=== PATIENT | male | born 1945 | race Caucasian/White ===

== ENCOUNTER → 2016-06-04 | Outpatient (CLI) | payer BC ==
[~2016-06-04] MED LIST: DICL-201 PO; METO50TA16 PO; XRL20 PO
[2016-06-04 15:28] LABS: BLOOD UREA NITROGEN 16 mg/dl (7-18)
== END | disposition home or self-care (01) ==
LOC: C.LAB1850 12:55
PROVIDERS: ATTEND Physician Assistant
DX: I71.4 Abdominal aortic aneurysm, without rupture (principal); Z98.890 Other specified postprocedural states

== ENCOUNTER → 2016-06-11 | Outpatient (CLI) | payer BC ==
[~2016-06-11] MED LIST changes: +OPTIRAY 320 IV PRN
--- NOTE | 2016-06-11 10:40 | DIAGNOSTIC IMAGING REPORT ---
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 COMPARISON STUDY: CT angiogram of the abdomen and pelvis dated 11/28/2015. TECHNIQUE: Before and following the IV administration of 93 cc of Optiray 320, CT angiogram of the abdomen and pelvis was performed from the lung bases the proximal femora using the stent graft protocol. Images are reviewed in the axial, sagittal, and coronal planes. 3-D MIPS images are created and assessed. IV contrast was administered without complication. CT DOSE: 1190.36 mGy.cm FINDINGS: Lower chest: The heart is enlarged and without pericardial effusion. The coronary arteries are densely calcified. The lung bases are clear noting minimal dependent atelectasis. Tiny calcified granulomas are noted at the lung bases. Liver: The contrast-enhanced liver is normal in size, contour, and attenuation. There is no intrahepatic or ductal dilatation. The main portal veins appear patent. Gallbladder: Unremarkable. Spleen: Normal in size and attenuation. Pancreas: Unremarkable. Adrenal glands: Unremarkable. Kidneys: No renal calculi are identified on the unenhanced series. The contrast enhanced kidneys demonstrate cortical atrophy and are without hydronephrosis. The kidneys enhance symmetrically. A 1.6 cm cyst is identified in the upper pole the right kidney. Abdominal aorta and iliac arteries: There is advanced atherosclerotic calcification of the abdominal aorta and iliac arteries. There are postoperative changes from aortobiiliac stent graft repair of an infrarenal abdominal aortic aneurysm. There is no evidence of rupture. The residual aneurysm sac measures 5.6 cm in AP diameter and 5.4 cm in transverse diameter. The stent is widely patent. There are large type II endoleak identified, similar appearance to 11/28/2015 examination. These likely arises from the inferior mesenteric artery seen on axial image #198 of the delayed series, and from a left lumbar vessel seen on image #188. The iliac arteries are widely patent bilaterally. A focal dissection is again seen within the left common iliac artery on axial image #329 of the arterial phase series. Major branches of the abdominal aorta: The celiac trunk and superior mesenteric arteries are widely patent. The inferior mesenteric arteries patent, likely filling via retrograde flow. Hepatic arterial anatomy is conventional. The splenic artery is clear. There are single bilateral renal arteries which are widely patent. Bowel: The small bowel and colon are normal in course and caliber. The appendix is normal in appearance. Peritoneum: There is no intraperitoneal free air or abdominal ascites. Lymphadenopathy: None. Pelvic viscera: The prostate gland is enlarged measuring 5.4 cm in transverse diameter. The bladder wall appears thickened and trabeculated suggesting the sequelae of chronic outlet obstruction. Skeletal structures: The skeletal structures are osteopenic. There is mild to moderate lumbosacral spondylosis and scoliosis. Degenerative change is noted in the sacroiliac joints with partial fusion on the right. No destructive bony lesions are seen. IMPRESSION: 1. Again seen are postoperative changes from aortobiiliac stent graft repair of an infrarenal abdominal aortic aneurysm. The stent is widely patent. 2. 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 This is similar to 11/28/2015. A clear communication with these vessels is shown, and although the contrast material is located adjacent to the graft a type III endoleak is considered much less likely. 3. The residual aneurysm sac measures 5.6 x 5.4 cm, and has not significantly changed in size from previous. 4. 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 5. Cardiomegaly. 6. No acute infectious or inflammatory findings are identified in the abdomen or pelvis. 7. Prostatomegaly with evidence of chronic bladder outlet obstruction. Electronically signed by: Ramesh Dowd M.D. 06/11/2016 10:38 AM Dictated Date/Time: 06/11/2016 10:21 AM
== END | disposition home or self-care (01) ==
LOC: C.CTS 09:41
PROVIDERS: ATTEND Physician Assistant
DX: I71.4 Abdominal aortic aneurysm, without rupture (principal); Z98.890 Other specified postprocedural states; I51.7 Cardiomegaly; N40.0 Benign prostatic hyperplasia without lower urinary tract symptoms; N32.0 Bladder-neck obstruction

== ENCOUNTER → 2017-07-18 | Outpatient (CLI) | payer BC ==
--- NOTE | 2017-07-18 09:51 | DIAGNOSTIC IMAGING REPORT ---
ANGIO ABD/PELVIS COMBO CLINICAL HISTORY: 71 years-old Male presenting with history of aortic aneurysm repair, concern for graft leak, follow-up size of aneurysm. TECHNIQUE: Multidetector CT angiography of the abdomen and pelvis was performed before and after the administration of intravenous contrast. 3-D volumetric and/or maximum intensity projection (MIP) images were subsequently reconstructed for review. IV contrast: 94 L of Optiray 320. A dose lowering technique was used consistent with the principles of ALARA (as low as reasonably achievable). Stenosis measurements were based on NASCET-like criteria. COMPARISON: 06/11/2016. CT DOSE (mGy.cm): The estimated cumulative dose is 700.60 mGy.cm. 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 Vasculature: Atherosclerosis of the abdominal aorta. Celiac, superior mesenteric, bilateral single main renal arteries patent. Atherosclerosis noted at the origins of the renal arteries without significant stenosis. Conventional hepatic arterial anatomy. A modular aortobiiliac endograft stent is in place and widely patent. There is aneurysmal dilatation of the infrarenal abdominal aorta, which is greatest in the bilateral iliac portion proximal to the bifurcation. The aneurysm sac measures up to 5.4 x 5.4 cm, previously 5.5 x 5.5 cm, essentially unchanged. There is evidence of an endoleak arising from a modular overlap along the right posterior lateral aspect of the stent (series 5 image 156). This fills a portion of the right lateral aneurysm sac along the superior margin. The inferior mesenteric artery is noted at the inferior extent (series 5 image 183). It appears that this vessel has antegrade flow. Remaining abdomen and pelvis: Lung bases: Minimal basilar opacities, likely atelectasis. Punctate solid nodule noted in the lingula (series 5 image 34). Normal heart size. Coronary artery calcification. No pericardial or pleural effusion. Liver: Normal morphology. Normal density. No focal lesion. Patent hepatic vasculature. Biliary: No intrahepatic or extrahepatic biliary ductal dilatation. Normal gallbladder. Pancreas: Normal. Spleen: Normal. Adrenal glands: Normal. Kidneys and ureters: Well-defined hypodensity at the upper pole the right kidney compatible with cyst. No hydronephrosis. No nephrolithiasis. Normal and symmetric perfusion excretion of the kidneys. Dilatation of the proximal left ureter may be due to a compression effect from the aneurysm sac. Bladder: Incompletely evaluated secondary to underdistention. Pelvic organs: Prostate enlargement likely secondary to benign prostatic hyperplasia. Bowel: Feces in the distal ileum compatible with delayed transit. No bowel obstruction. Peritoneal cavity: No free fluid or intraperitoneal gas. Lymph nodes: No enlarged lymph nodes in the abdomen or pelvis. Abdominal wall: Normal. Musculoskeletal: Degenerative changes of the spine. IMPRESSION: 1. Stable size of the infrarenal abdominal aortic aneurysm sac, which measures 5.4 cm in diameter. Aortobiiliac endograft stent with evidence of an endoleak, which is suspected to a type IIIa leak at the modular overlap with anterograde flow to the inferior mesenteric artery. Electronically signed by: Jadiel Saini M.D. 07/18/2017 9:49 AM Dictated Date/Time: 07/18/2017 9:31 AM
== END | disposition home or self-care (01) ==
LOC: C.CTS 08:58
PROVIDERS: ATTEND Physician Assistant
DX: T82.330A Leakage of aortic (bifurcation) graft (replacement), initial encounter (principal); X58.XXXA Exposure to other specified factors, initial encounter; I71.4 Abdominal aortic aneurysm, without rupture